=== PATIENT | male | born 1940 | race Caucasian/White ===

== ENCOUNTER 2017-10-06 12:11 | Emergency (ER) | payer OTHER ==
--- NOTE | 2017-10-06 12:22 | EKG ---
[address] [address] Test Date: 2017-10-06 Test Time: 12:18:24 Pat Name: RAY ELKINS Department: Room: Gender: M [employer]: : 1940 Requested By: JUAN ZAMORA Order Number: [id number] Reading MD: Gadiel Bernstein MD Measurements Intervals [place] Rate: 72 P: 90 KS: 166 QRS: 28 QRSD: 84 T: 39 QT: 400 QTc: 440 Interpretive Statements SINUS RHYTHM Electronically Signed On 10-07-2017 13:00:29 CDT by Gadiel Bernstein MD
--- NOTE | 2017-10-06 12:33 | RAD ---
EXAM: Chest, 2 views. HISTORY: Short of breath. COMPARISON: None. FINDINGS: Frontal and lateral views of chest are obtained. There is emphysema. There is right middle lobe atelectasis or partial collapse. There is no pleural effusion or pneumothorax. There is a port catheter with the tip in the superior right atrium. There is a tracheostomy device overlying the thoracic inlet. There are healed rib fractures. There is a nodular opacities overlying the right lower lobe possibly due to partially calcified granulomas. IMPRESSION: 1. Emphysema with suspected right middle lobe atelectasis or partial collapse. 2. Small nodular opacities overlying the right lower lobe, possibly due to partially calcified granulomas. In the absence of prior studies to assess for interval change, short-term radiographic follow-up is recommended. Electronically signed by: Selina Sanz MD (10/06/2017 12:30 PM) [facility]
[2017-10-06 12:57] LABS: BASO # 0.1 x10^3/uL (0.0-0.2); BASO % 1 % (0-3); EOS # 0.4 x10^3/uL (0.0-0.7); EOS % 5 % (0-3); HEMOGLOBIN 12.3 g/dL (13.0-17.5); LYMPH # 0.5 x10^3/uL (1.0-4.8); LYMPH % 6 % (24-48); MEAN CORPUSCULAR HEMOGLOBIN 36 pg (25-35); MEAN CORPUSCULAR HGB CONC 34 g/dL (31-37); MEAN CORPUSCULAR VOLUME 105 fL (79-100); MONO # 0.7 x10^3/uL (0.0-1.1); MONO % 7 % (0-9); NEUT # 7.5 x10^3uL (1.8-7.7); NEUT % 82 % (31-73); PLATELET COUNT 127 x10^3/uL (140-400); RED BLOOD COUNT 3.43 x10^6/uL (4.30-5.70); RED CELL DISTRIBUTION WIDTH 16.8 % (11.5-14.5); WHITE BLOOD COUNT 9.2 x10^3/uL (4.0-11.0)
[2017-10-06 13:19] LABS: ALBUMIN 3.8 g/dL (3.4-5.0); ALBUMIN/GLOBULIN RATIO 0.9 (1.0-1.7); CALCIUM 9.3 mg/dL (8.5-10.1); CREATININE 1.1 mg/dL (0.7-1.3); GFR 64.9; POTASSIUM 3.9 mmol/L (3.5-5.1); TOTAL BILIRUBIN 0.4 mg/dL (0.2-1.0); TOTAL PROTEIN 8.2 g/dL (6.4-8.2)
--- NOTE | 2017-10-06 13:24 | PHYS DOC ---
Past History Past Medical History: Cancer, COPD, Other Past Surgical History: Other Alcohol Use: None Drug Use: None Adult General Chief Complaint Chief Complaint: SHORTNESS OF BREATH [facility] HPI 77-year-old male patient with history of laryngeal cancer and tracheostomy placement brought in by EMS for shortness of breath and slurred speech. Patient' s son and daughter deny state he was inside their car and returning to his skilled nursing that a short time shopping and suddenly had slurred speech and decrease of level of consciousness without coughing or shortness of breath and had an episodes of TIA. EMS reported that patient had mucous plug with hypoxia that improved after suctioning getting oxygen and patient was able to talk. Patient states he was hearing all of the conversation but was not able to talk because of mucous plug. Patient denies chest pain, focal neuro deficit, headache , nausea and vomiting and states his shortness of breath resolved. Review of Systems Review of Systems Constitutional: Denies fever or chills [] Eyes: Denies change in visual acuity, redness, or eye pain [] HENT: Denies nasal congestion or sore throat [] Respiratory: Reports shortness of breath [] Cardiovascular: No additional information not addressed in HPI [] GI: Denies abdominal pain, nausea, vomiting, bloody stools or diarrhea [] : Denies dysuria or hematuria [] Musculoskeletal: Denies back pain or joint pain [] Integument: Denies rash or skin lesions [] Neurologic: Denies headache, focal weakness or sensory changes [] Endocrine: Denies polyuria or polydipsia [] All other systems were reviewed and found to be within normal limits, except as documented in this note. Physical Exam Physical Exam Constitutional: Well developed, no acute distress, non-toxic appearance. [] HENT: Normocephalic, atraumatic, oropharynx moist, no oral exudates, nose normal. [] Eyes: PERRLA, EOMI, conjunctiva normal, no discharge. [] Neck: Tracheostomy tube in place, normal range of motion, no tenderness, supple , no stridor. [] Cardiovascular:Heart rate regular rhythm, no murmur [] Lungs & Thorax: Bilateral breath sounds clear to auscultation [] Abdomen: Bowel sounds normal, soft, no tenderness, no masses, no pulsatile masses, PEG tube in place. [] Skin: Warm, dry, no erythema, no rash. [] Back: No tenderness, no CVA tenderness. [] Extremities: No tenderness, no cyanosis, no clubbing, ROM intact, no edema. [] Neurologic: Alert and oriented X 3, normal motor function, normal sensory function, no focal deficits noted. [] Psychologic: Affect normal, judgement normal, mood normal. [] Current Patient Data Vital Signs Vital Signs Date Time Temp Pulse Resp B/P (MAP) Pulse Ox O2 Delivery O2 Flow Rate FiO2 10/06/17 12:20 98.2 70 24 99 Room Air EKG EKG EKG interpreted by me. EKG at 12:18 showed normal sinus rhythm at rate of 72, T- wave abnormality in anteroseptal leads, no acute ST and T-wave abnormalities[] Radiology/Procedures Radiology/Procedures [][address] [address] IMAGING REPORT Signed PATIENT: RAY ELKINS ACCOUNT: [id number] : 1940 LOCATION: ER AGE: 77 SEX: M EXAM STATUS: REG ER ORD. PHYSICIAN: JUAN ZAMORA MD REASON: shortness of breath PROCEDURE: CHEST PA & LATERAL EXAM: Chest, 2 views. HISTORY: Short of breath. COMPARISON: None. FINDINGS: Frontal and lateral views of chest are obtained. There is emphysema. There is right middle lobe atelectasis or partial collapse. There is no pleural effusion or pneumothorax. There is a port catheter with the tip in the superior right atrium. There is a tracheostomy device overlying the thoracic inlet. There are healed rib fractures. There is a nodular opacities overlying the right lower lobe possibly due to partially calcified granulomas. IMPRESSION: 1. Emphysema with suspected right middle lobe atelectasis or partial collapse. 2. Small nodular opacities overlying the right lower lobe, possibly due to partially calcified granulomas. In the absence of prior studies to assess for interval change, short-term radiographic follow-up is recommended. Electronically signed by: Selina Mcneil MD (10/06/2017 12:30 PM) [facility] DICTATED AND SIGNED BY: SELINA MCNEIL MD DATE: 10/06/17 1940 CC: KAMILA BOYKIN; JUAN ZAMORA MD ~ Course & Med Decision Making Course & Med Decision Making Pertinent Labs and Imaging studies reviewed. (See chart for details) Evaluation of patient in ER showed 77-year-old male patient with tracheostomy and PEG tube placement brought in by EMS because of episodes of slurred speech and shortness of breath that resolved after suctioning of his tracheostomy. Patient was alert and oriented and denied any problem and didn't want to have more evaluation but his daughter in the was concern for TIA. Patient refused to have CT of head and signed AGAINST MEDICAL ADVICE and walked out of the ER. [] Dragon Disclaimer Dragon Disclaimer This electronic medical record was generated, in whole or in part, using a voice recognition dictation system. Departure Departure: Impression: Primary Impression: Noncompliance by refusing service Additional Impressions: Shortness of breath History of laryngeal cancer Tracheostomy in place Tobacco abuse Tobacco abuse counseling S/P percutaneous endoscopic gastrostomy (PEG) tube placement Disposition: 07 AGAINST MEDICAL ADVICE (At 1324) Condition: IMPROVED Referrals: KAMILA BOYKIN (PCP) Problem Qualifiers JUAN ZAMORA MD Oct 06, 2017 13:24
[2017-10-06 13:49] LABS: % BANDS 4 % (0-9); % BASOS 0 % (0-3); % EOS 6 % (0-5); % LYMPHS 9 % (24-48); % MONOS 5 % (0-10); % SEGS 76 % (35-66); ANISOCYTOSIS PRESENT; PLATELET CLUMP PRESENT; PLT ESTIMATE DECREASED (ADEQUATE); TEAR DROP CELLS PRESENT; TOXIC GRANULATION PRESENT; TOXIC VACUOLATION PRESENT
[2017-10-06 14:14] VITALS: BP 200/91
== END 2017-10-06 13:30 | disposition left against medical advice (07) ==
LOC: ER 12:11
DX: R06.02 Shortness of breath (principal); R47.81 Slurred speech; J44.9 Chronic obstructive pulmonary disease, unspecified; Z93.0 Tracheostomy status; Z72.0 Tobacco use; Z71.6 Tobacco abuse counseling; Z93.1 Gastrostomy status; Z91.19 Patient's noncompliance with other medical treatment and regimen; Z85.21 Personal history of malignant neoplasm of larynx
CPT/HCPCS: 36415; 71046; 80053; 82553; 83880; 84484; 85007; 85025; 85610; 93005; 99285-25